=== PATIENT | female | born 1945 | race Caucasian/White ===

== ENCOUNTER 2020-09-13 14:37 | Inpatient (IN) | payer OTHER, MEDICARE ==
[2020-09-13] MEDS ORDERED: hydrALAZINE 20 MG/ML VIAL SLOW IVP PRN (17:42)
[2020-09-13] MEDS ORDERED: Dextrose 5% in Water 1,000 ML IV PRN (17:42)
[2020-09-13] MEDS ORDERED: Dextrose 50% Abboject 50 ML SYRINGE SLOW IVP PRN (17:42)
[2020-09-13] MEDS ORDERED: Ondansetron PF 4 MG/2 ML Vial IVP PRN (17:42)
[2020-09-13] MEDS ORDERED: Ondansetron ODT 4 MG TAB PO PRN (17:42)
[2020-09-13] MEDS ORDERED: Rib Fracture Protocol PO SCH (17:45)
[2020-09-13] MEDS: traMADol HCl 50 MG TAB PO SCH (20:30)
[2020-09-13] MEDS: Gabapentin 100 MG CAP PO SCH (20:44)
[2020-09-13] MEDS: Famotidine 20 MG TAB PO SCH (20:44)
[2020-09-13 21:15] VITALS: BMI 20.9
[2020-09-13] MEDS: Cyclobenzaprine 10 MG TAB PO PRN (22:15)
[2020-09-13] MEDS: Ibuprofen 600 MG TAB PO SCH (22:15)
[2020-09-14] MEDS: Acetaminophen 500 MG TAB PO SCH ×5 (00:13→23:05)
[2020-09-14] MEDS: traMADol HCl 50 MG TAB PO SCH ×4 (00:14→17:51)
[2020-09-14] MEDS: Ibuprofen 600 MG TAB PO SCH (05:36)
[2020-09-14 07:14] LABS: Bilirubin Negative (Negative); Blood, Urine Negative (Negative); Clarity Clear (Clear); Glucose, Urine (Dipstick) Normal (Negative); Ketone, Urine 20 mg/dL (Negative); Leukocyte Negative Leu/uL (Negative); Nitrite Negative (Negative); Protein, Urine (Dipstick) Negative (Neg-Trace); Specific Gravity, Urine 1.038 (1.002-1.036); Urobilinogen Normal mg/dL (Less than 2)
[2020-09-14 08:06] LABS: Phosphorus 4.4 mg/dL (2.3-4.7)
[2020-09-14 08:08] LABS: #Lymphocytes 1.2 thou/uL (1.20-3.40); #Monocytes 0.4 thou/uL (0.11-0.59); %Basophils 0.1 % (0.0-1.0); %Eosinophils 0.3 % (0.0-10.0); %Lymphocytes 21.1 % (21.0-51.0); %Monocytes 7.8 % (0.0-10.0); %Neutrophils 70.8 % (42.0-75.0); Hemoglobin 11.4 g/dL (12.0-16.0); Mean Corpuscular HGB CONC 31.2 g/dL (32.0-36.0); Mean Corpuscular Hemoglobin 27.9 pg (27.0-31.0); Mean Corpuscular Volume 89.3 fL (78.0-98.0); Mean Platelet Volume 7.5 fL (7.4-10.4); Platelet Count 202 thou/uL (130-400); RBC Distribution Width 11.6 % (11.5-14.5); Red Blood Cell (RBC) Count 4.07 mill/uL (4.20-5.40); White Blood Cell (WBC) Count 5.6 thou/uL (4.8-10.8)
[2020-09-14 08:11] LABS: Anion Gap 11 mmol/L (10-20); BUN (Urea Nitrogen) 14 mg/dL (9.8-20.1); Calc. Creatinine Clearance 59 mL/min (70-130); Calcium 9.3 mg/dL (7.8-10.44); Carbon Dioxide 30 mmol/L (23-31); Chloride 101 mmol/L (98-107); Glucose 99 mg/dL (83-110); Magnesium 2.2 mg/dL (1.6-2.6); Potassium 3.9 mmol/L (3.5-5.1); Sodium 138 mmol/L (136-145)
[2020-09-14] MEDS: Gabapentin 100 MG CAP PO SCH ×3 (08:57→21:03)
[2020-09-14] MEDS: Famotidine 20 MG TAB PO SCH ×2 (08:57→21:03)
[2020-09-14] MEDS: Senokot S 8.6-50 MG TAB PO SCH ×2 (08:57→21:03)
[2020-09-14] MEDS ORDERED: Enoxaparin Sodium 30 MG/0.3 ML SYRINGE SC SCH (09:00)
[2020-09-14] MEDS ORDERED: Ibuprofen 600 MG TAB PO SCH (14:00)
[2020-09-14] MEDS: Ibuprofen 200 MG TAB PO SCH (23:05)
[2020-09-15] MEDS: traMADol HCl 50 MG TAB PO SCH ×5 (00:24→23:47)
[2020-09-15] MEDS: Acetaminophen 500 MG TAB PO SCH ×4 (06:04→23:03)
[2020-09-15] MEDS: Ibuprofen 200 MG TAB PO SCH ×3 (06:04→23:03)
[2020-09-15] MEDS: Senokot S 8.6-50 MG TAB PO SCH ×2 (08:37→21:28)
[2020-09-15] MEDS: Gabapentin 100 MG CAP PO SCH ×3 (08:37→21:28)
[2020-09-15] MEDS: Famotidine 20 MG TAB PO SCH ×2 (08:37→21:28)
[2020-09-16] MEDS: traMADol HCl 50 MG TAB PO SCH ×3 (05:47→17:40)
[2020-09-16] MEDS: Acetaminophen 500 MG TAB PO SCH ×3 (05:47→17:40)
[2020-09-16] MEDS: Ibuprofen 200 MG TAB PO SCH ×2 (05:47→15:16)
[2020-09-16] MEDS: Famotidine 20 MG TAB PO SCH ×2 (09:51→20:03)
[2020-09-16] MEDS: Senokot S 8.6-50 MG TAB PO SCH ×2 (09:51→20:03)
[2020-09-16] MEDS: Gabapentin 100 MG CAP PO SCH ×3 (09:52→20:02)
[2020-09-17] MEDS: traMADol HCl 50 MG TAB PO SCH ×3 (01:43→14:21)
[2020-09-17] MEDS: Ibuprofen 200 MG TAB PO SCH ×4 (01:43→23:35)
[2020-09-17] MEDS: Acetaminophen 500 MG TAB PO SCH ×5 (01:43→23:35)
[2020-09-17] MEDS: Famotidine 20 MG TAB PO SCH ×2 (08:30→21:18)
[2020-09-17] MEDS: Gabapentin 100 MG CAP PO SCH ×3 (08:30→21:18)
[2020-09-17] MEDS: Senokot S 8.6-50 MG TAB PO SCH ×2 (08:30→21:18)
[2020-09-17] MEDS ORDERED: Loratadine 10 MG TAB PO PRN (22:52)
[2020-09-18] MEDS: Acetaminophen 500 MG TAB PO SCH ×4 (05:46→23:35)
[2020-09-18] MEDS: Ibuprofen 200 MG TAB PO SCH ×3 (05:46→21:39)
[2020-09-18] MEDS: Senokot S 8.6-50 MG TAB PO SCH ×2 (08:44→20:33)
[2020-09-18] MEDS: Gabapentin 100 MG CAP PO SCH ×3 (08:44→20:34)
[2020-09-18] MEDS: Polyethylene Glycol 3350 17 GM Packet PO SCH (08:44)
[2020-09-18] MEDS: Docusate 100 MG CAP PO SCH ×2 (08:45→20:34)
[2020-09-18] MEDS ORDERED: Senokot S 8.6-50 MG TAB PO SCH (09:00)
[2020-09-18 16:43] LABS: Bilirubin Negative (Negative); Blood, Urine Negative (Negative); Clarity Clear (Clear); Glucose, Urine (Dipstick) Normal (Negative); Ketone, Urine Trace mg/dL (Negative); Leukocyte 75 Leu/uL (Negative); Nitrite Negative (Negative); Protein, Urine (Dipstick) Negative (Neg-Trace); RBC/HPF 0-3 HPF (0-3); Specific Gravity, Urine 1.011 (1.002-1.036); Squamous Epithelial 0-3 HPF (0-3); Urobilinogen Normal mg/dL (Less than 2)
[2020-09-18 16:45] LABS: Urine Culture Reflex Yes Yes
[2020-09-18 17:13] LABS: Bacteria/HPF 1+ HPF (None Seen)
[2020-09-18] MEDS: Nitrofurantoin Monohyd/M-Cryst 100 MG CAP PO SCH (20:34)
[2020-09-19] MEDS: Ibuprofen 200 MG TAB PO SCH ×3 (05:10→20:56)
[2020-09-19] MEDS: Acetaminophen 500 MG TAB PO SCH ×3 (05:10→17:53)
[2020-09-19] MEDS: Polyethylene Glycol 3350 17 GM Packet PO SCH (08:37)
[2020-09-19] MEDS: Docusate 100 MG CAP PO SCH ×2 (08:37→21:04)
[2020-09-19] MEDS: Gabapentin 100 MG CAP PO SCH ×2 (08:43→14:32)
[2020-09-19] MEDS: Senokot S 8.6-50 MG TAB PO SCH ×2 (08:43→21:05)
[2020-09-19] MEDS: Nitrofurantoin Monohyd/M-Cryst 100 MG CAP PO SCH ×2 (08:43→20:57)
[2020-09-19] MEDS: Cyclobenzaprine 10 MG TAB PO PRN (21:32)
[2020-09-20] MEDS: Acetaminophen 500 MG TAB PO SCH ×4 (00:56→19:25)
[2020-09-20] MEDS: Ibuprofen 200 MG TAB PO SCH ×3 (05:14→21:40)
[2020-09-20] MEDS: Loratadine 10 MG TAB PO SCH (08:37)
[2020-09-20] MEDS: Nitrofurantoin Monohyd/M-Cryst 100 MG CAP PO SCH ×2 (08:37→21:41)
[2020-09-20] MEDS: Senokot S 8.6-50 MG TAB PO SCH ×2 (08:38→21:42)
[2020-09-20] MEDS: Polyethylene Glycol 3350 17 GM Packet PO SCH (08:38)
[2020-09-20] MEDS: Docusate 100 MG CAP PO SCH ×2 (08:38→21:41)
[2020-09-20] MEDS ORDERED: Melatonin 3 MG TAB PO PRN (13:47)
[2020-09-20] MEDS: Cyclobenzaprine 10 MG TAB PO PRN (21:41)
[2020-09-21] MEDS: Acetaminophen 500 MG TAB PO SCH ×4 (01:00→17:16)
[2020-09-21] MEDS: Ibuprofen 200 MG TAB PO SCH ×3 (06:20→21:06)
[2020-09-21] MEDS: Loratadine 10 MG TAB PO SCH (08:20)
[2020-09-21] MEDS: Nitrofurantoin Monohyd/M-Cryst 100 MG CAP PO SCH ×2 (08:20→21:07)
[2020-09-21] MEDS: Docusate 100 MG CAP PO SCH ×2 (08:21→21:08)
[2020-09-21] MEDS: Senokot S 8.6-50 MG TAB PO SCH ×2 (08:22→21:08)
[2020-09-21] MEDS: Polyethylene Glycol 3350 17 GM Packet PO SCH (08:22)
[2020-09-22] MEDS: Acetaminophen 500 MG TAB PO SCH ×4 (01:13→17:06)
[2020-09-22] MEDS: Ibuprofen 200 MG TAB PO SCH ×3 (05:22→21:49)
[2020-09-22] MEDS: Loratadine 10 MG TAB PO SCH (08:11)
[2020-09-22] MEDS: Docusate 100 MG CAP PO SCH ×2 (08:11→20:26)
[2020-09-22] MEDS: Nitrofurantoin Monohyd/M-Cryst 100 MG CAP PO SCH ×2 (08:11→20:25)
[2020-09-22] MEDS: Polyethylene Glycol 3350 17 GM Packet PO SCH (08:11)
[2020-09-22] MEDS: Senokot S 8.6-50 MG TAB PO SCH ×2 (08:12→20:26)
[2020-09-22] MEDS: Cyclobenzaprine 10 MG TAB PO PRN ×2 (11:01→21:49)
[2020-09-22] MEDS: traMADol HCl 50 MG TAB PO PRN (13:08)
[2020-09-23] MEDS: Acetaminophen 500 MG TAB PO SCH ×4 (00:06→17:14)
[2020-09-23] MEDS: Ibuprofen 200 MG TAB PO SCH ×3 (05:59→20:38)
[2020-09-23] MEDS: Docusate 100 MG CAP PO SCH ×2 (08:08→20:36)
[2020-09-23] MEDS: Senokot S 8.6-50 MG TAB PO SCH ×2 (08:08→20:36)
[2020-09-23] MEDS: Loratadine 10 MG TAB PO SCH (08:08)
[2020-09-23] MEDS: Nitrofurantoin Monohyd/M-Cryst 100 MG CAP PO SCH ×2 (08:08→20:39)
[2020-09-23] MEDS: Polyethylene Glycol 3350 17 GM Packet PO SCH (08:08)
[2020-09-23] MEDS: Cyclobenzaprine 10 MG TAB PO PRN (20:38)
[2020-09-24] MEDS: Acetaminophen 500 MG TAB PO SCH ×4 (00:35→18:30)
[2020-09-24] MEDS: traMADol HCl 50 MG TAB PO PRN (05:46)
[2020-09-24] MEDS: Ibuprofen 200 MG TAB PO SCH ×3 (05:46→21:33)
[2020-09-24] MEDS: Cyclobenzaprine 10 MG TAB PO PRN ×2 (07:54→21:33)
[2020-09-24] MEDS: Loratadine 10 MG TAB PO SCH (07:54)
[2020-09-24] MEDS: Senokot S 8.6-50 MG TAB PO SCH ×2 (07:55→22:04)
[2020-09-24] MEDS: Docusate 100 MG CAP PO SCH ×2 (07:58→22:04)
[2020-09-24] MEDS: Polyethylene Glycol 3350 17 GM Packet PO SCH (07:58)
[2020-09-25] MEDS: Acetaminophen 500 MG TAB PO SCH ×5 (00:10→21:56)
[2020-09-25] MEDS: Ibuprofen 200 MG TAB PO SCH ×3 (07:47→16:53)
[2020-09-25] MEDS: Polyethylene Glycol 3350 17 GM Packet PO SCH (08:53)
[2020-09-25] MEDS: Senokot S 8.6-50 MG TAB PO SCH ×2 (08:53→21:56)
[2020-09-25] MEDS: Cyclobenzaprine 10 MG TAB PO PRN ×2 (08:54→21:55)
[2020-09-25] MEDS: Docusate 100 MG CAP PO SCH ×2 (08:55→21:56)
[2020-09-25] MEDS: Loratadine 10 MG TAB PO SCH (08:55)
[2020-09-26] MEDS: Ibuprofen 200 MG TAB PO SCH ×3 (00:24→16:17)
[2020-09-26] MEDS: Acetaminophen 500 MG TAB PO SCH ×4 (03:43→21:39)
[2020-09-26] MEDS: Loratadine 10 MG TAB PO SCH (08:16)
[2020-09-26] MEDS: Polyethylene Glycol 3350 17 GM Packet PO SCH (08:18)
[2020-09-26] MEDS: Senokot S 8.6-50 MG TAB PO SCH ×2 (08:18→21:39)
[2020-09-26] MEDS: Docusate 100 MG CAP PO SCH ×2 (08:18→21:39)
[2020-09-27] MEDS: Ibuprofen 200 MG TAB PO SCH ×2 (00:27→09:32)
[2020-09-27] MEDS: Acetaminophen 500 MG TAB PO SCH ×3 (04:53→15:44)
[2020-09-27] MEDS ORDERED: Ibuprofen 200 MG TAB PO SCH ×2 (09:30→15:00)
[2020-09-27] MEDS: Loratadine 10 MG TAB PO SCH (09:31)
[2020-09-27] MEDS: Docusate 100 MG CAP PO SCH (09:32)
[2020-09-27] MEDS: Senokot S 8.6-50 MG TAB PO SCH (09:32)
[2020-09-27] MEDS: Polyethylene Glycol 3350 17 GM Packet PO SCH (09:32)
[2020-09-27 15:38] VITALS: BP 142/79; TEMP 98.4
== END 2020-09-27 18:41 | disposition home health service (06) | DRG 551 ==
LOC: SURG A 14:37
PROVIDERS: ADMIT Surgery; ATTEND Surgery
DX: S12.400A Unspecified displaced fracture of fifth cervical vertebra, initial encounter for closed fracture (principal); S32.401A Unspecified fracture of right acetabulum, initial encounter for closed fracture; S22.42XA Multiple fractures of ribs, left side, initial encounter for closed fracture; S22.058A Other fracture of T5-T6 vertebra, initial encounter for closed fracture; N39.0 Urinary tract infection, site not specified; Z20.822 Contact with and (suspected) exposure to COVID-19; S00.03XA Contusion of scalp, initial encounter; V49.49XA Driver injured in collision with other motor vehicles in traffic accident, initial encounter; Z79.899 Other long term (current) drug therapy; Z88.5 Allergy status to narcotic agent
CPT/HCPCS: 36415; 36416; 72170; 80048; 81001; 81003; 83735; 84100; 85025; 87086; 94640; J7620